=== PATIENT | female | born 1995 | race African-American/Black ===

== ENCOUNTER 2018-09-22 17:53 | Emergency (ER) | payer BC ==
[~2018-09-22] VITALS: Ht 165.1 cm; Wt 90.9 kg
[2018-09-22 17:56] VITALS: BP 123/64; TEMP 97.7
[2018-09-22] MEDS ORDERED: FAMVIR250 MG PO (17:59)
[2018-09-22] MEDS ORDERED: CONCERTA54 MG PO (17:59)
[2018-09-22] MEDS ORDERED: FORFIVO XL450 MG (17:59)
[2018-09-22 18:11] LABS: COLLECTION METHOD CLEAN CATCH
[2018-09-22 18:20] LABS: PH 6 (5-8); SQUAMOUS EPITHELIAL 0-2 /hpf; URINE APPEARANCE Clear; URINE BACTERIA None Seen /hpf; URINE BILIRUBIN Negative (NEGATIVE); URINE BLOOD 2+ (NEGATIVE); URINE COLOR Yellow; URINE GLUCOSE Negative (NEGATIVE); URINE KETONE Negative (NEGATIVE); URINE LEUKOCYTE ESTERASE 2+ (NEGATIVE); URINE NITRATE Negative (NEGATIVE); URINE PROTEIN(semi-quant) 1+ (NEGATIVE); URINE UROBILINOGEN Negative (NEGATIVE)
[2018-09-22 18:26] LABS: BASO % 0.3 % (0.0-2.0); EOS % 0.2 % (0-4.0); GRAN # 9.2 (1.4-6.5); GRAN % 78.4 % (42.2-75.2); HEMATOCRIT 38.6 % (37.0-47.0); HEMOGLOBIN 13.1 g/dl (12.5-16.0); LYMPH # 1.5 (1.2-3.4); LYMPH % 13.1 % (20.0-51.0); MEAN CELL VOLUME 89 fl (80.0-100.0); MEAN CORPUSCULAR HEMOGLOBIN 30 pg (27.0-31.0); MEAN CORPUSCULAR HGB CONC 34 g/dl (33.0-37.0); MEAN PLATELET VOLUME 10.4 fl (7.4-10.4); MONO # 0.9 (0.1-0.6); MONO % 7.6 % (1.7-9.3); PLATELET COUNT 176 K/mm3 (130-400); RED BLOOD COUNT 4.33 M/mm3 (4.10-5.30); REDCELL DISTRIBUTION WIDTH-CV 12.7 % (11.5-14.5)
[2018-09-22 18:35] LABS: ALBUMIN 4.2 gm/dL (3.5-5.0); BILIRUBIN,TOTAL 0.6 mg/dL (0.0-1.0); CALCIUM 9.4 mg/dL (8.4-10.2); CREATININE, serum 0.97 (0.52-1.25); POTASSIUM 4.2 mmol/L (3.4-5.0)
[2018-09-22] MEDS ORDERED: ZOFRAN ODT4 MG PO (19:42)
[2018-09-22 19:56] VITALS: PULSE 82
== END 2018-09-22 19:56 | disposition home or self-care (01) ==
LOC: COL.ER 17:53 → EDSEX 17:54 → COL.ER 19:56
PROVIDERS: Physician Assistant
DX: N12 Tubulo-interstitial nephritis, not specified as acute or chronic (principal); Z87.891 Personal history of nicotine dependence
CPT/HCPCS: A4216; J0696; J1885; J2405; J7030; Q9967

== ENCOUNTER → 2018-09-30 | Outpatient (CLI) | payer BC, OTHER ==
[~2018-09-30] MED LIST: CONCERTA54 MG PO; FAMVIR250 MG PO; FORFIVO XL450 MG; ZOFRAN ODT4 MG PO
== END ==
LOC: COL.RAD 15:14
DX: R19.07 Generalized intra-abdominal and pelvic swelling, mass and lump (principal); R10.9 Unspecified abdominal pain; R68.82 Decreased libido

== ENCOUNTER 2018-12-31 21:57 | Emergency (ER) | payer BC, OTHER ==
[~2018-12-31] VITALS: Ht 160 cm; Wt 90.9 kg
[2018-12-31 22:43] VITALS: TEMP 99
[2019-01-01 00:43] VITALS: BP 140/60; PULSE 85
== END 2019-01-01 00:59 | disposition home or self-care (01) ==
LOC: COL.ER 21:57
DX: S80.02XA Contusion of left knee, initial encounter (principal); F41.9 Anxiety disorder, unspecified; F32.9 Major depressive disorder, single episode, unspecified; W22.8XXA Striking against or struck by other objects, initial encounter

== ENCOUNTER → 2019-05-16 | Outpatient (CLI) | payer SELFPAY | LOC: COL.RAD 15:53 | DX: N28.89 Other specified disorders of kidney and ureter (principal); N83.202 Unspecified ovarian cyst, left side | CPT/HCPCS: Q9967 ==

== ENCOUNTER 2021-11-11 01:53 | Outpatient (CLI) | payer BC ==
[~2021-11-11] VITALS: Ht 160 cm; Wt 116.8 kg
--- NOTE | 2021-11-11 02:00 | NUR ---
0200 - PATIENT AMBULATORY TO R6 ACCOMPANIED BY BOYFRIEND. PATIENT REPORTS LEAKING OF FLUID ON 11/10/21 AT 2245. PATIENT DENIES BLOODY SHOW, BUT STATES SHE FEELS CRAMPY. PLAN OF CARE REVIEWED. QUESTIONS ANSWERED. 0217 - PATIENT ON MONITOR. 0228 - SVE PERFORMED BY THIS RN. . AMNIOTRACE POSITIVE. CLEAR FLUID NOTED UPON EXAM. 0230 - MONITORING CONTINUES. PATIENT EXPRESSES DESIRE FOR EPIDURAL PART OF HER BIRTHING PLAN THOUGH NOT REQUESTING ONE AT THIS TIME. 0236 - MD SUZY CALLED AND NOTIFIED OF PATIENT ARRIVAL AND SVE , SROM AT 2245, CLEAR FLUID NOTED, WOULD LIKE EPIDURAL DURING LABOR.
[2021-11-11 02:30] VITALS: BP 144/87; PULSE 101
[2021-11-11 03:00] VITALS: PULSE 104
[2021-11-11 03:25] VITALS: BP 138/82; PULSE 106
--- NOTE | 2021-11-11 03:30 | NUR ---
0315 - MD SUZY AT BEDSIDE. PLAN OF CARE DISCUSSED WITH PATIENT. PATIENT TO TRANSFER TO [place] PER DISCUSSION WITH MD SUZY PATIENT WOULD LIKE AN EPIDURAL AND [facility] IS UNABLE TO PROVIDE ANESTHESIA AT THIS TIME. 033 - REPORT CALLED TO VALERIE RAMOS AT [facility] L&D. 0350 - PATIENT LEAVES UNIT BY WHEELCHAIR.
== END 2021-11-11 03:50 | disposition short-term general hospital (02) ==
LOC: LDRO 01:53
DX: Z34.93 Encounter for supervision of normal pregnancy, unspecified, third trimester (principal); Z3A.38 38 weeks gestation of pregnancy

== ENCOUNTER → 2021-11-20 | Outpatient (CLI) | payer BC ==
--- NOTE | 2021-11-20 16:30 | NUR ---
Pt, Krish Guo presents to walk-in clinic with 9 day old baby girl, Ermelinda Bonds. She was referred by Dr. Dwyer because Ermelinda's weight loss and suspected low milk supply. Ermelinda was born by c/section on [birth year] at [facility] in [place], [place]. She weighed 6# 12oz (3060 gms). Ermelinda has been followed closely by Dr. Dwyer since her discharge from the hospital. She was seen yesterday and weighed 5# 15.2oz. Pt has been orrering Ermelinda the breast at daytime feedings, followed by 1oz formula or EBM if she nurses well, and 1.5 to 2oz if she does not nurse well or not at all. Pt reports Ermelinda is being fed 8 or more feedings daily. Pt also reports she pumps after almost every feeding, collecting about 10ml per session. Max collection was 17ml yesterday. Ermelinda also has 11+ voids and stools daily, pt adds the stools are larger than before she started the current feeding plan. Today Ermelinda is breastfed on the left side both with and without the nipple shield and transfer 10ml. She transfers 36ml from the right, which this LC questions but she did nurse pretty well with audible swallows. Ermelinda is bottle fed formula after and she was content after 20 ml. Pt pumps and collects 7ml. Three different bird trialed, 19 or 21mm should fit her best. POC: Continue current feeding plan with breast/bottle/pumping. Handout re: increasing milk supply provided. F/U: Walk-in clinic in 5 days. Questions invited and answered.
== END ==
LOC: LAC 14:07
DX: Z39.1 Encounter for care and examination of lactating mother (principal); Z71.89 Other specified counseling

== ENCOUNTER → 2021-11-25 | Outpatient (CLI) | payer BC ==
--- NOTE | 2021-11-25 14:24 | NUR ---
Pt, Krish Guo, presents to walk-in clinic with 2 week old baby girl, Ermelinda Bonds. They were seen at clinic 5 days ago for Ermelinda not gaining weight adequately and low milk supply. Ermelinda was born on [birth year] and weighed 6# 12oz. She was seen on 11/19/[address] Dwyer's office and weighed 5# 15.2oz. At clinic 5 days ago she weighed 6# 1.5oz. POC was established to include breast/bottle/pump. Pt has followed this plan with Ermelinda BID and her pumping x5 per 24 hours (collecting aboout 1oz per session, and bottle feeding about 2oz q 2-3.5 hours. Today Ermelinda weighs 6#8.2oz (2954 gmms). After nursing with the nipple shield bilaterally Ermelinda had a weight gain of 4 gms. She was then bottle fed 42 ml EBM. POC: Continue to focus on improvment of milk supply by adding power pumping and herbal supplements. Continue BF as desired and bottle feeing 2-3oz per feeding. F/U: Anticipate at clinic in two days where we will try to get latched without the nipple shield. Questions invited and answered.
== END ==
LOC: LAC 13:00
DX: Z39.1 Encounter for care and examination of lactating mother (principal)

== ENCOUNTER 2023-07-05 04:14 | Day surgery (SDC) | payer BC, MEDICAID ==
[2023-07-05] VITALS (13 sets, daily range): BP systolic 105–137; BP diastolic 73–90; PULSE 58–87; TEMP 97.7–98.1
[~2023-07-05] VITALS: Ht 162.6 cm; Wt 84.1 kg
[2023-07-05] MEDS ORDERED: Ondansetron 4 MG/2 ML VIAL IV ONE (05:00)
[2023-07-05] MEDS ORDERED: NS 1,000 ML IV ONE (05:00)
[2023-07-05] MEDS ORDERED: Morphine 4 MG/ML VIAL IV ONE (05:00)
[2023-07-05 05:34] LABS: ALBUMIN 3.4 g/dL (3.5-5.0); BILIRUBIN,TOTAL 0.5 mg/dL (0.2-1.2); CALCIUM 10.1 mg/dL (8.4-10.2); CREATININE, serum 0.83 mg/dL (0.57-1.11); POTASSIUM 3.9 mEq/L (3.5-4.5); TOTAL PROTEIN 7.8 g/dl (6.2-8.1)
[2023-07-05 05:53] LABS: BASO % 0.2 % (0.0-2.0); C-REACTIVE PROTEIN 21.25 mg/dL (0.00-0.50); EOS # 0.1 K/mm3 (0.0-0.7); EOS % 0.6 % (0.0-4.0); GRAN # 5.6 K/mm3 (1.4-6.5); GRAN % 63.3 % (42.2-75.2); HEMOGLOBIN 12.2 g/dl (12.5-16.0); LYMPH # 2.7 K/mm3 (1.2-3.4); LYMPH % 30.9 % (20.0-51.0); MAGNESIUM 2.1 mg/dL (1.6-2.6); MEAN CELL VOLUME 89 fl (80.0-100.0); MEAN CORPUSCULAR HEMOGLOBIN 30 pg (27-31); MEAN CORPUSCULAR HGB CONC 34 g/dl (33.0-37.0); MEAN PLATELET VOLUME 11.3 fl (7.4-10.4); MONO # 0.4 K/mm3 (0.1-0.6); MONO % 4.8 % (1.7-9.3); PLATELET COUNT 212 K/mm3 (130-400); RED BLOOD COUNT 4.09 M/mm3 (4.10-5.30); REDCELL DISTRIBUTION WIDTH-CV 13.7 % (11.5-14.5)
[2023-07-05 05:55] LABS: HEMATOCRIT 36.4 % (37.0-47.0)
[2023-07-05 06:41] LABS: COLLECTION METHOD CLEAN CATCH
[2023-07-05 06:45] LABS: PH 6.5 (5.0-8.5); URINE APPEARANCE CLEAR (CLEAR/HAZY); URINE BLOOD NEGATIVE (NEGATIVE); URINE COLOR YELLOW (YELLOW); URINE GLUCOSE NEGATIVE (NEGATIVE); URINE KETONE NEGATIVE (NEGATIVE); URINE NITRATE NEGATIVE (NEGATIVE); URINE PROTEIN(semi-quant) NEGATIVE (NEGATIVE); URINE UROBILINOGEN 0.2 E.U/dL (0.2-1.0)
[2023-07-05] MEDS ORDERED: Iohexol 300 - 100 ML VIAL IV ONE (06:54)
[2023-07-05] MEDS ORDERED: NS 100 ML IV SCH (06:56)
[2023-07-05] MEDS ORDERED: LR 1,000 ML IV ONE (11:45)
[2023-07-05] MEDS ORDERED: Rocuronium 50 MG/5 ML Multi-Dose VIAL ONE (11:55)
[2023-07-05] MEDS ORDERED: fentaNYL 50 MCG/ML 5 ML VIAL ONE (11:56)
[2023-07-05] MEDS ORDERED: dexAMETHasone 10 MG/ML VIAL ONE (12:36)
[2023-07-05] MEDS ORDERED: NS 100 ML IV ONE (12:46)
[2023-07-05] MEDS ORDERED: Ketorolac 30 MG/ML VIAL ONE (13:01)
[2023-07-05] MEDS ORDERED: Ondansetron 4 MG/2 ML VIAL ONE (13:01)
[2023-07-05] MEDS ORDERED: Naloxone 0.4 MG/ML VIAL IV PRN (13:30)
[2023-07-05] MEDS ORDERED: Ondansetron 4 MG/2 ML VIAL IV PRN ×2 (13:30→13:45)
[2023-07-05] MEDS ORDERED: LR 1,000 ML IV SCH (13:30)
[2023-07-05] MEDS ORDERED: Acetaminophen 500 MG TAB PO SCH (13:30)
[2023-07-05] MEDS ORDERED: oxyCODONE 5 MG TAB PO PRN (13:30)
[2023-07-05] MEDS ORDERED: fentaNYL 50 MCG/ML 1 ML SYRINGE/VIAL [PACU/SDC ONLY] IV PRN (13:45)
[2023-07-05] MEDS ORDERED: HYDROmorphone 1 MG/1 ML SYRINGE [PACU/SDC ONLY] IV PRN (13:45)
[2023-07-05] MEDS ORDERED: Gentamicin/Sodium Chloride 50 ML IV SCH ×2 (14:00→20:00)
--- NOTE | 2023-07-05 14:00 | NUR ---
PATIENT ARRIVED TO MEDICAL UNIT AT THIS TIME. PATIENT DENIES ANY PAIN, POST OP VITALS STABLE. ORIENTED TO ROOM. CALL LIGHT WITHIN REACH. WILL CONTINUE TO MONITOR.
[2023-07-05] MEDS ORDERED: WELLBUTRIN XL150 MG PO (15:30)
[2023-07-05] MEDS ORDERED: VRAYLAR3 MG PO (15:31)
[2023-07-05] MEDS ORDERED: LAMICTAL150 MG PO (15:31)
[2023-07-05] MEDS ORDERED: KURVELO 30 MCG-1 TAB PO (15:32)
[2023-07-05] MEDS ORDERED: ADDERALL20 MG PO (15:32)
[2023-07-05] MEDS ORDERED: Ibuprofen 600 MG TAB PO SCH (19:19)
[2023-07-05] MEDS ORDERED: ceFAZolin 2 G in Water For Injection,Sterile 20 ML IV SCH (21:00)
[2023-07-05] MEDS ORDERED: Docusate Sodium 100 MG CAP PO SCH (21:00)
--- NOTE | 2023-07-05 21:48 | NUR ---
patient lying in bed, alert and oriented x4. denies chest pain and shortness of breath. reports pain sitting at a tolerable 6/10. pt educated on vaping cessation especially during recovery and using a pillow or holding pressure to abd while coughing, education verbally understood by pt. IV in LAC is patent, site is clean dry and intact with LR running at 125 ml/hr. mid ABD sites x2 with bandaids and tranverse lower abd site x1 with gauze dressing are all clean dry and intact, no additional abnormal skin findings. pt has no further needs, questions, or concerns at this time. ambulating with steady gait, call light within reach. will continue to monitor.
[2023-07-06 00:16] VITALS: BP_SYST 121
[2023-07-06 03:04] VITALS: BP 117/84; PULSE 70; TEMP 98.1
[2023-07-06 03:49] VITALS: BP_SYST 117
[2023-07-06 06:51] LABS: BASO % 0.1 % (0.0-2.0); GRAN # 9.5 K/mm3 (1.4-6.5); GRAN % 84.8 % (42.2-75.2); HEMOGLOBIN 11.3 g/dl (12.5-16.0); LYMPH # 1.3 K/mm3 (1.2-3.4); LYMPH % 11.2 % (20.0-51.0); MEAN CELL VOLUME 89 fl (80.0-100.0); MEAN CORPUSCULAR HEMOGLOBIN 30 pg (27-31); MEAN CORPUSCULAR HGB CONC 34 g/dl (33.0-37.0); MEAN PLATELET VOLUME 11.3 fl (7.4-10.4); MONO # 0.4 K/mm3 (0.1-0.6); MONO % 3.5 % (1.7-9.3); PLATELET COUNT 207 K/mm3 (130-400); RED BLOOD COUNT 3.75 M/mm3 (4.10-5.30); REDCELL DISTRIBUTION WIDTH-CV 13.4 % (11.5-14.5)
[2023-07-06 06:54] LABS: HEMATOCRIT 33.2 % (37.0-47.0)
[2023-07-06 07:12] VITALS: BP 139/89; PULSE 76; TEMP 97.9
[2023-07-06] MEDS ORDERED: IBU600 MG PO (08:23)
[2023-07-06] MEDS ORDERED: ROXICODONE 55 MG/TAB PO (08:24)
[2023-07-06] MEDS ORDERED: AMOXICILLIN 8751 TAB PO (08:25)
[2023-07-06 08:30] VITALS: BP_SYST 139
--- NOTE | 2023-07-06 09:34 | NUR ---
aircraft worker met with pt to discuss discharge planning. Pt reports to live with her young child in [place]. She sees Dr. Yung and obtains medications from [facility] with no difficulties. She confirms her insurance has BCBS and Medicaid [facility]. She reports her contact as her mother, Lisa Guo; not her partner listed. She states she is independent with ADLS and uses no DME. Pt intends to return home upon discharge. Discharge Plan: home
--- NOTE | 2023-07-06 10:50 | NUR ---
Initial visit; Patient appears to be a very happy mom with her mother and baby girl with her in the room. Krish states she is doing well and feels really blessed. Direct Sales Consultant offered God's blessings to her and her family.
--- NOTE | 2023-07-06 12:39 | NUR ---
DISCHARGE INSTRUCTIONS DISCUSSED WITH PT. ALL QUESTIONS ANSWERED. IV REMOVED. PT WHEELED OUT FOR DISCHARGE BY [facility].
== END 2023-07-06 12:40 | disposition home or self-care (01) ==
LOC: SDCO 04:14 → COL.ER 04:14 → EDSTATUS 09:51 → MEDICAL 14:00 → SDCO 14:02 → MEDICAL 14:03 → SDCO 14:03 → MEDICAL 07-06 12:40
PROVIDERS: Emergency Medicine; Obstetrics & Gynecology
DX: N70.01 Acute salpingitis (principal); N70.11 Chronic salpingitis; N73.6 Female pelvic peritoneal adhesions (postinfective); Z87.891 Personal history of nicotine dependence
CPT/HCPCS: OP; G0378; J0690; J1100; J1580; J1885; J2270; J2405; J2704; J3010; J7030; J7120; Q9967

== ENCOUNTER 2023-09-17 17:34 | Emergency (ER) | payer BC, MEDICAID ==
[~2023-09-17] VITALS: Ht 162.6 cm; Wt 84.1 kg
[~2023-09-17 17:34] MED LIST changes: +ADDERALL20 MG PO; +AMOXICILLIN 8751 TAB PO; +CEPHALEXIN500 M1 PO; +FLAGYL500 MG PO; +IBU600 MG PO; +KURVELO 30 MCG-1 TAB PO; +LAMICTAL150 MG PO; +ROXICODONE 55 MG/TAB PO; +VRAYLAR3 MG PO; +WELLBUTRIN XL150 MG PO
[2023-09-17 17:39] VITALS: TEMP 98.5
[2023-09-17] MEDS ORDERED: NS 1,000 ML IV ONE (18:15)
[2023-09-17] MEDS ORDERED: Ondansetron 4 MG/2 ML VIAL IV ONE (18:15)
[2023-09-17] MEDS ORDERED: Ketorolac 30 MG/ML VIAL IV ONE (18:15)
[2023-09-17 18:45] LABS: BASO % 0.2 % (0.0-2.0); EOS # 0.1 K/mm3 (0.0-0.7); EOS % 0.6 % (0.0-4.0); GRAN # 6.1 K/mm3 (1.4-6.5); GRAN % 68.2 % (42.2-75.2); HEMOGLOBIN 11.8 g/dl (12.5-16.0); LYMPH # 2.2 K/mm3 (1.2-3.4); MEAN CELL VOLUME 88 fl (80.0-100.0); MEAN CORPUSCULAR HEMOGLOBIN 30 pg (27-31); MEAN CORPUSCULAR HGB CONC 34 g/dl (33.0-37.0); MEAN PLATELET VOLUME 9.2 fl (7.4-10.4); MONO # 0.6 K/mm3 (0.1-0.6); MONO % 6.7 % (1.7-9.3); PLATELET COUNT 253 K/mm3 (130-400); RED BLOOD COUNT 3.98 M/mm3 (4.10-5.30); REDCELL DISTRIBUTION WIDTH-CV 12.9 % (11.5-14.5)
[2023-09-17 18:51] LABS: HEMATOCRIT 35.2 % (37.0-47.0)
[2023-09-17 19:08] LABS: ALBUMIN 3.5 g/dL (3.5-5.0); BILIRUBIN,TOTAL 0.4 mg/dL (0.2-1.2); CALCIUM 9.7 mg/dL (8.4-10.2); CREATININE, serum 0.77 mg/dL (0.57-1.11); POTASSIUM 3.5 mEq/L (3.5-4.5); TOTAL PROTEIN 7.1 g/dl (6.2-8.1)
[2023-09-17 19:14] LABS: COLLECTION METHOD CLEAN CATCH
[2023-09-17 19:24] LABS: URINE APPEARANCE CLEAR (CLEAR/HAZY); URINE BLOOD 3+ (NEGATIVE); URINE COLOR YELLOW (YELLOW); URINE GLUCOSE NEGATIVE (NEGATIVE); URINE KETONE NEGATIVE (NEGATIVE); URINE NITRATE NEGATIVE (NEGATIVE); URINE PROTEIN(semi-quant) NEGATIVE (NEGATIVE); URINE UROBILINOGEN 0.2 E.U/dL (0.2-1.0)
[2023-09-17] MEDS ORDERED: Iohexol 300 - 100 ML VIAL IV ONE (19:30)
[2023-09-17] MEDS ORDERED: NS 50 ML IV SCH (19:30)
[2023-09-17 20:22] VITALS: BP 113/80; PULSE 78
== END 2023-09-17 20:26 | disposition home or self-care (01) ==
LOC: COL.ER 17:34
PROVIDERS: Physician Assistant
DX: G89.18 Other acute postprocedural pain (principal); R10.11 Right upper quadrant pain; Z90.722 Acquired absence of ovaries, bilateral; Z87.891 Personal history of nicotine dependence
CPT/HCPCS: J1885; J2405; J7030; Q9967